=== PATIENT | female | born 1965 | race Caucasian/White ===

== ENCOUNTER 2017-01-21 08:44 | Emergency (ER) | payer MEDICAID ==
[~2017-01-21] VITALS: Ht 157.5 cm; Wt 86.2 kg
[2017-01-21] MEDS ORDERED: Norco 5mg/325mg tab ORAL ONE (08:45)
[2017-01-21] MEDS ORDERED: Bacitracin Oint UD TOPIC ONE (08:45)
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
[2017-01-21 10:14] VITALS: BP 137/78
[2017-01-21] MEDS ORDERED: TRAMADOL HCL50 MG ORAL (10:16)
[2017-01-21] MEDS ORDERED: IBUPROFEN600 MG ORAL (10:16)
[2017-01-21 10:32] VITALS: BP 137/78
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
== END 2017-01-21 10:32 | disposition home or self-care (01) ==
LOC: EDBD 08:44 → EMR 09:53
DX: S80.02XA Contusion of left knee, initial encounter (principal); S50.01XA Contusion of right elbow, initial encounter; S20.212A Contusion of left front wall of thorax, initial encounter; S20.211A Contusion of right front wall of thorax, initial encounter; S50.312A Abrasion of left elbow, initial encounter; V43.52XA Car driver injured in collision with other type car in traffic accident, initial encounter; Y92.410 Unspecified street and highway as the place of occurrence of the external cause
CPT/HCPCS: 29530; 71010; 99284